=== PATIENT | male | born 1985 | race Caucasian/White ===

== ENCOUNTER 2019-08-27 16:20 | Emergency (ER) | payer MEDICARE, MEDICAID ==
--- NOTE | 2019-08-27 16:42 | EDM.PDOC ---
<OfficerSalvador - Last Filed: 08/28/19 01:05> ED HPI GENERAL MEDICAL PROBLEM - General Chief Complaint: Behavioral/Psych Stated Complaint: EVAL Time Seen by Provider: 08/27/19 16:42 - Related Data Allergies Allergy/AdvReac Type Severity Reaction Status Date / Time haloperidol [From Haldol] Allergy Agitation Verified 08/27/19 16:33 Penicillins Allergy Difficulty Verified 08/27/19 16:34 Breathing Home Meds: Home Meds LORazepam [Ativan] 2 mg PO TID 08/27/19 [History] [place] Carbonate 600 mg PO BID 08/27/19 [History] OLANZapine [ZyPREXA] 5 mg PO BID PRN 08/27/19 [History] OLANZapine [ZyPREXA] 30 mg PO BEDTIME 08/27/19 [History] Paliperidone Palmitate [Invega Sustenna] 78 mg IM ASDIRECTED 08/27/19 [History] lamoTRIgine [Lamictal] 200 mg PO DAILY 08/27/19 [History] Course - Vital Signs Last Recorded V/S: Last Vital Signs Temp 36.9 C 08/28/19 04:10 Pulse 87 08/28/19 06:07 Resp 16 08/28/19 06:07 BP 132/71 08/28/19 06:07 Pulse Ox 94 L 08/28/19 06:07 - Orders/Labs/Meds Labs: Laboratory Tests 08/27/19 08/27/19 08/27/19 Range/Units 16:56 17:04 17:51 WBC 14.8 H (4.5-11.0) K/uL RBC 5.25 (4.30-5.90) M/uL Hgb 14.9 (12.0-15.0) g/dL Hct 44.7 (40.0-54.0) % MCV 85 (80-98) fL MCH 28 (27-31) pg MCHC 33 (32-36) % Plt Count 387 (150-400) K/uL Neut % (Auto) 67 H (36-66) % Lymph % (Auto) 21 L (24-44) % [place] % (Auto) 10 H (2-6) % Eos % (Auto) 2 (2-4) % Baso % (Auto) 0 (0-1) % Sodium (140-148) mmol/L Potassium (3.6-5.2) mmol/L Chloride (100-108) mmol/L Carbon Dioxide (21-32) mmol/L Anion Gap (5.0-14.0) mmol/L BUN (7-18) mg/dL Creatinine (0.8-1.3) mg/dL Est Cr Clr Drug Dosing mL/min Estimated GFR (MDRD) (>60) Glucose (74-106) mg/dL Calcium (8.5-10.1) mg/dL Total Bilirubin (0.2-1.0) mg/dL AST (15-37) U/L ALT (12-78) U/L Alkaline Phosphatase (46-116) U/L Total Protein (6.4-8.2) g/dL Albumin (3.4-5.0) g/dL Globulin (2.3-3.5) g/dL Albumin/Globulin Ratio (1.2-2.2) TSH, Ultra Sensitive (0.358-3.740) uIU/mL Urine Opiates Screen Negative (NEGATIVE) Ur Oxycodone Screen Negative (NEGATIVE) Urine Methadone Screen Negative (NEGATIVE) Ur Propoxyphene Screen Negative (NEGATIVE) Ur Barbiturates Screen Negative (NEGATIVE) Ur Tricyclics Screen Negative (NEGATIVE) Ur Phencyclidine Scrn Negative (NEGATIVE) Ur Amphetamine Screen Negative (NEGATIVE) U Methamphetamines Scrn Negative (NEGATIVE) Urine MDMA Screen Negative (NEGATIVE) U Benzodiazepines Scrn Presumptive positive H (NEGATIVE) U Cocaine Metab Screen Negative (NEGATIVE) U Marijuana (THC) Screen Negative (NEGATIVE) Ethyl Alcohol < 3 mg/dL 08/27/19 Range/Units 17:51 WBC (4.5-11.0) K/uL RBC (4.30-5.90) M/uL Hgb (12.0-15.0) g/dL Hct (40.0-54.0) % MCV (80-98) fL MCH (27-31) pg MCHC (32-36) % Plt Count (150-400) K/uL Neut % (Auto) (36-66) % Lymph % (Auto) (24-44) % [place] % (Auto) (2-6) % Eos % (Auto) (2-4) % Baso % (Auto) (0-1) % Sodium 138 L (140-148) mmol/L Potassium 3.2 L (3.6-5.2) mmol/L Chloride 100 (100-108) mmol/L Carbon Dioxide 24 (21-32) mmol/L Anion Gap 17.2 H (5.0-14.0) mmol/L BUN 5 L (7-18) mg/dL Creatinine 1.1 (0.8-1.3) mg/dL Est Cr Clr Drug Dosing 100.78 mL/min Estimated GFR (MDRD) > 60 (>60) Glucose 152 H (74-106) mg/dL Calcium 8.8 (8.5-10.1) mg/dL Total Bilirubin 0.5 (0.2-1.0) mg/dL AST 28 (15-37) U/L ALT 38 (12-78) U/L Alkaline Phosphatase 97 (46-116) U/L Total Protein 7.9 (6.4-8.2) g/dL Albumin 4.2 (3.4-5.0) g/dL Globulin 3.7 H (2.3-3.5) g/dL Albumin/Globulin Ratio 1.1 L (1.2-2.2) TSH, Ultra Sensitive 1.880 (0.358-3.740) uIU/mL Urine Opiates Screen (NEGATIVE) Ur Oxycodone Screen (NEGATIVE) Urine Methadone Screen (NEGATIVE) Ur Propoxyphene Screen (NEGATIVE) Ur Barbiturates Screen (NEGATIVE) Ur Tricyclics Screen (NEGATIVE) Ur Phencyclidine Scrn (NEGATIVE) Ur Amphetamine Screen (NEGATIVE) U Methamphetamines Scrn (NEGATIVE) Urine MDMA Screen (NEGATIVE) U Benzodiazepines Scrn (NEGATIVE) U Cocaine Metab Screen (NEGATIVE) U Marijuana (THC) Screen (NEGATIVE) Ethyl Alcohol mg/dL Meds: Medications Discontinued Medications Generic Name Dose Route Start Last Admin Trade Name Freq PRN Reason Stop Dose Admin Diphenhydramine HCl 50 mg 08/27/19 17:45 08/27/19 18:12 Benadryl IM 08/27/19 17:46 50 mg ONETIME ONE Administration Lamotrigine 200 mg 08/27/19 17:16 08/27/19 18:12 Lamotrigine PO 08/27/19 17:17 Not Given ONETIME ONE Lamotrigine 200 mg 08/28/19 07:50 08/28/19 08:06 Lamotrigine PO 08/28/19 07:51 200 mg ONETIME ONE Administration [place] Carbonate 300 mg 08/27/19 22:00 08/28/19 06:07 [place] Carbonate PO 300 mg QID AURELIA Administration [place] Carbonate 300 mg 08/28/19 00:41 08/28/19 00:44 [place] Carbonate PO 08/28/19 00:42 Not Given NOW STA Lorazepam 1 mg 08/27/19 17:16 08/27/19 17:23 Ativan PO 08/27/19 17:17 1 mg ONETIME ONE Administration Lorazepam 2 mg 08/27/19 17:44 08/27/19 18:18 Ativan IM 08/27/19 17:45 2 mg ONETIME ONE Administration Lorazepam 2 mg 08/28/19 06:16 08/28/19 06:33 Ativan IM 08/28/19 06:17 2 mg ONETIME ONE Administration Lorazepam 2 mg 08/28/19 07:51 08/28/19 08:06 Ativan PO 08/28/19 07:52 2 mg ONETIME ONE Administration Midazolam HCl 5 mg 08/27/19 19:17 08/27/19 19:45 Versed 1 Mg/Ml IM 08/27/19 19:18 5 mg ONETIME ONE Administration Midazolam HCl 5 mg 08/28/19 00:55 08/28/19 00:55 Versed 1 Mg/Ml IM 08/28/19 00:56 5 mg ONETIME ONE Administration Midazolam HCl 5 mg 08/28/19 03:14 08/28/19 03:36 Versed 1 Mg/Ml IM 08/28/19 03:15 5 mg ONETIME ONE Administration Olanzapine 10 mg 08/27/19 17:42 08/27/19 18:11 Zyprexa IM 08/27/19 17:43 10 mg ONETIME ONE Administration Olanzapine 10 mg 08/27/19 19:40 08/27/19 21:33 Zyprexa IM 08/27/19 19:41 Not Given ONETIME ONE Olanzapine 10 mg 08/27/19 19:46 08/28/19 00:52 Zyprexa PO 08/27/19 19:47 Not Given ONETIME ONE Olanzapine 10 mg 08/28/19 00:40 08/28/19 00:52 Zyprexa PO 08/28/19 00:41 10 mg ONETIME ONE Administration Olanzapine 10 mg 08/28/19 00:55 Zyprexa IM 08/28/19 00:56 ONETIME ONE Olanzapine 10 mg 08/28/19 03:13 08/28/19 03:36 Zyprexa IM 08/28/19 03:14 10 mg ONETIME ONE Administration - Re-Assessments/Exams Free Text/Narrative Re-Assessment/Exam: Continues to be aggressive and delusional about service, believe he is the javon of the world, thinks he is on a TV show 08/27/19 19:52 Initially did well on combination Zyprexa and Versed did last for several hours however would not medication wore off he went back to his verbal abusiveness poor following of directions, continues to ask for a barrister believes he is the cane and his constitutional rights are being violated 08/27/19 19:54 08/28/19 01:05 Departure - Departure Disposition: DC/Tfer to Psych Hosp/Unit 65 Clinical Impression: Bipolar depression manic phase, Psychosis - Discharge Information Referrals: PCP,None [Primary Care Provider] - Forms: ED Department Discharge Care Plan Goals: apt was sedated with ketamine and transported to [facility] to the psych unit <Nohemy Wu - Last Filed: 08/30/19 07:34> ED HPI GENERAL MEDICAL PROBLEM - General Source of Information: Reports: Patient History Limitations: Reports: No Limitations - History of Present Illness INITIAL COMMENTS - FREE TEXT/NARRATIVE: pt has a history of manic behavior with a psychotic behavior when he is manic. He was in front of the [employer] cafe with a rifle and he posted something indicating that there would be world peace. He was at [employer] when the fabric separator operator fopund him. He did have a rifle in his vehicle and [place] Onset: Unknown/Unsure Duration: Day(s):, Other (pt clearly admits to not taking his meds for 3 days. ) Location: Reports: Head Associated Symptoms: Reports: No Other Symptoms Past Medical History Psychiatric History: Reports: Bipolar ED ROS GENERAL - Review of Systems Review Of Systems: See Below Constitutional: Reports: Other (pt is clearly manic. ) HEENT: Reports: No Symptoms Respiratory: Reports: No Symptoms Cardiovascular: Reports: No Symptoms Endocrine: Reports: No Symptoms GI/Abdominal: Reports: No Symptoms : Reports: No Symptoms Musculoskeletal: Reports: No Symptoms Psychiatric: Reports: Homicidal Ideation, Mood Lability, Other (pt does have a gun. He thinks he is in the and he states there will be worl peace. ) - Physical Exam Exam: See Below Text/Narrative:: pt arrived with a history of carrying a gun in his car. He was standing in front of the [employer] stating that today there will be world peace. Exam Limited By: No Limitations General Appearance: Alert, Anxious, Other (pt is clearly in a manic state. He has not taken his meds for 3 days. He did go to [facility] last week. ) Ears: Normal TMs Nose: Normal Inspection Throat/Mouth: Normal Inspection Head Exam: Atraumatic Neck: Normal Inspection Respiratory/Chest: No Respiratory Distress Cardiovascular: Regular Rate, Rhythm GI/Abdominal: Soft, Non-Tender (Male) Exam: Deferred Rectal (Males) Exam: Deferred Neuro Exam (Abbreviated): Alert, Oriented, Other Back Exam: Normal Inspection Extremities: Normal Inspection Psychiatric: Other (pt is extremely manic. He has not taken his meds for the last 3 days. He has a gun in his car and he had it out in front of the [employer] cafe. He stated today there will be world peace. He stated to the fabric separator operator that he was [place] the [place]. He is very out of control but he states that he is not out of control. ) Course - Vital Signs Last Recorded V/S: Last Vital Signs Temp 36.9 C 08/28/19 04:10 Pulse 87 08/28/19 06:07 Resp 16 08/28/19 06:07 BP 132/71 08/28/19 06:07 Pulse Ox 94 L 08/28/19 06:07 - Orders/Labs/Meds Labs: Laboratory Tests 08/27/19 08/27/19 08/27/19 Range/Units 16:56 17:04 17:51 WBC 14.8 H (4.5-11.0) K/uL RBC 5.25 (4.30-5.90) M/uL Hgb 14.9 (12.0-15.0) g/dL Hct 44.7 (40.0-54.0) % MCV 85 (80-98) fL MCH 28 (27-31) pg MCHC 33 (32-36) % Plt Count 387 (150-400) K/uL Neut % (Auto) 67 H (36-66) % Lymph % (Auto) 21 L (24-44) % [place] % (Auto) 10 H (2-6) % Eos % (Auto) 2 (2-4) % Baso % (Auto) 0 (0-1) % Sodium (140-148) mmol/L Potassium (3.6-5.2) mmol/L Chloride (100-108) mmol/L Carbon Dioxide (21-32) mmol/L Anion Gap (5.0-14.0) mmol/L BUN (7-18) mg/dL Creatinine (0.8-1.3) mg/dL Est Cr Clr Drug Dosing mL/min Estimated GFR (MDRD) (>60) Glucose (74-106) mg/dL Calcium (8.5-10.1) mg/dL Total Bilirubin (0.2-1.0) mg/dL AST (15-37) U/L ALT (12-78) U/L Alkaline Phosphatase (46-116) U/L Total Protein (6.4-8.2) g/dL Albumin (3.4-5.0) g/dL Globulin (2.3-3.5) g/dL Albumin/Globulin Ratio (1.2-2.2) TSH, Ultra Sensitive (0.358-3.740) uIU/mL Urine Opiates Screen Negative (NEGATIVE) Ur Oxycodone Screen Negative (NEGATIVE) Urine Methadone Screen Negative (NEGATIVE) Ur Propoxyphene Screen Negative (NEGATIVE) Ur Barbiturates Screen Negative (NEGATIVE) Ur Tricyclics Screen Negative (NEGATIVE) Ur Phencyclidine Scrn Negative (NEGATIVE) Ur Amphetamine Screen Negative (NEGATIVE) U Methamphetamines Scrn Negative (NEGATIVE) Urine MDMA Screen Negative (NEGATIVE) U Benzodiazepines Scrn Presumptive positive H (NEGATIVE) U Cocaine Metab Screen Negative (NEGATIVE) U Marijuana (THC) Screen Negative (NEGATIVE) Ethyl Alcohol < 3 mg/dL 08/27/19 Range/Units 17:51 WBC (4.5-11.0) K/uL RBC (4.30-5.90) M/uL Hgb (12.0-15.0) g/dL Hct (40.0-54.0) % MCV (80-98) fL MCH (27-31) pg MCHC (32-36) % Plt Count (150-400) K/uL Neut % (Auto) (36-66) % Lymph % (Auto) (24-44) % [place] % (Auto) (2-6) % Eos % (Auto) (2-4) % Baso % (Auto) (0-1) % Sodium 138 L (140-148) mmol/L Potassium 3.2 L (3.6-5.2) mmol/L Chloride 100 (100-108) mmol/L Carbon Dioxide 24 (21-32) mmol/L Anion Gap 17.2 H (5.0-14.0) mmol/L BUN 5 L (7-18) mg/dL Creatinine 1.1 (0.8-1.3) mg/dL Est Cr Clr Drug Dosing 100.78 mL/min Estimated GFR (MDRD) > 60 (>60) Glucose 152 H (74-106) mg/dL Calcium 8.8 (8.5-10.1) mg/dL Total Bilirubin 0.5 (0.2-1.0) mg/dL AST 28 (15-37) U/L ALT 38 (12-78) U/L Alkaline Phosphatase 97 (46-116) U/L Total Protein 7.9 (6.4-8.2) g/dL Albumin 4.2 (3.4-5.0) g/dL Globulin 3.7 H (2.3-3.5) g/dL Albumin/Globulin Ratio 1.1 L (1.2-2.2) TSH, Ultra Sensitive 1.880 (0.358-3.740) uIU/mL Urine Opiates Screen (NEGATIVE) Ur Oxycodone Screen (NEGATIVE) Urine Methadone Screen (NEGATIVE) Ur Propoxyphene Screen (NEGATIVE) Ur Barbiturates Screen (NEGATIVE) Ur Tricyclics Screen (NEGATIVE) Ur Phencyclidine Scrn (NEGATIVE) Ur Amphetamine Screen (NEGATIVE) U Methamphetamines Scrn (NEGATIVE) Urine MDMA Screen (NEGATIVE) U Benzodiazepines Scrn (NEGATIVE) U Cocaine Metab Screen (NEGATIVE) U Marijuana (THC) Screen (NEGATIVE) Ethyl Alcohol mg/dL Meds: Medications Discontinued Medications Generic Name Dose Route Start Last Admin Trade Name Kevin PRN Reason Stop Dose Admin Diphenhydramine HCl 50 mg 08/27/19 17:45 08/27/19 18:12 Benadryl IM 08/27/19 17:46 50 mg ONETIME ONE Administration Lamotrigine 200 mg 08/27/19 17:16 08/27/19 18:12 Lamotrigine PO 08/27/19 17:17 Not Given ONETIME ONE Lamotrigine 200 mg 08/28/19 07:50 08/28/19 08:06 Lamotrigine PO 08/28/19 07:51 200 mg ONETIME ONE Administration [place] Carbonate 300 mg 08/27/19 22:00 08/28/19 06:07 [place] Carbonate PO 300 mg QID AURELIA Administration [place] Carbonate 300 mg 08/28/19 00:41 08/28/19 00:44 [place] Carbonate PO 08/28/19 00:42 Not Given NOW STA Lorazepam 1 mg 08/27/19 17:16 08/27/19 17:23 Ativan PO 08/27/19 17:17 1 mg ONETIME ONE Administration Lorazepam 2 mg 08/27/19 17:44 08/27/19 18:18 Ativan IM 08/27/19 17:45 2 mg ONETIME ONE Administration Lorazepam 2 mg 08/28/19 06:16 08/28/19 06:33 Ativan IM 08/28/19 06:17 2 mg ONETIME ONE Administration Lorazepam 2 mg 08/28/19 07:51 08/28/19 08:06 Ativan PO 08/28/19 07:52 2 mg ONETIME ONE Administration Midazolam HCl 5 mg 08/27/19 19:17 08/27/19 19:45 Versed 1 Mg/Ml IM 08/27/19 19:18 5 mg ONETIME ONE Administration Midazolam HCl 5 mg 08/28/19 00:55 08/28/19 00:55 Versed 1 Mg/Ml IM 08/28/19 00:56 5 mg ONETIME ONE Administration Midazolam HCl 5 mg 08/28/19 03:14 08/28/19 03:36 Versed 1 Mg/Ml IM 08/28/19 03:15 5 mg ONETIME ONE Administration Olanzapine 10 mg 08/27/19 17:42 08/27/19 18:11 Zyprexa IM 08/27/19 17:43 10 mg ONETIME ONE Administration Olanzapine 10 mg 08/27/19 19:40 08/27/19 21:33 Zyprexa IM 08/27/19 19:41 Not Given ONETIME ONE Olanzapine 10 mg 08/27/19 19:46 08/28/19 00:52 Zyprexa PO 08/27/19 19:47 Not Given ONETIME ONE Olanzapine 10 mg 08/28/19 00:40 08/28/19 00:52 Zyprexa PO 08/28/19 00:41 10 mg ONETIME ONE Administration Olanzapine 10 mg 08/28/19 00:55 Zyprexa IM 08/28/19 00:56 ONETIME ONE Olanzapine 10 mg 08/28/19 03:13 08/28/19 03:36 Zyprexa IM 08/28/19 03:14 10 mg ONETIME ONE Administration - Re-Assessments/Exams Free Text/Narrative Re-Assessment/Exam: 08/27/19 17:30 drug screen is neg. he has not taken any of his meds in 3 days. He was offered lamital and lithium but he refused them because he states they make him sick. 08/27/19 17:31 he does state that he used a small amount of cocaine about 1 week ago. This does not show up in his drug screen 08/28/19 08:08 pt continues to be agitated. Phong mother was contacted to find out the name of the facility he was at in [place]. She continues to stress that the seroquel was the most helpful to him. 08/28/19 10:00 This case was discussed with [facility] and he was accepted by Dr Jones.Pt will go to a isolation room on admission. Pt will be sedated with ketamine prior to transfer. 08/30/19 07:32 pt continued to be very agitated. He was given ativan 1 mg po. He was accepted at [facility] in the psych unit. He was sedated with ketamine and sent to [facility] Departure - Departure Time of Disposition: 10:38 Condition: Fair
[2019-08-27] MEDS ORDERED: LORazepam 1 MG Tab PO ONE (17:16)
[2019-08-27] MEDS ORDERED: lamoTRIgine 100 MG Tab PO ONE (17:16)
[2019-08-27] MEDS ORDERED: OLANZapine 10 MG Vial IM ONE ×2 (17:42→19:40)
[2019-08-27] MEDS ORDERED: LORazepam 2 MG/ML SDV IM ONE (17:44)
[2019-08-27] MEDS ORDERED: diphenhydrAMINE 50 MG/ML SDV IM ONE (17:45)
[2019-08-27] MEDS ORDERED: Midazolam 1 MG/ML 5 ML SDV IM ONE (19:17)
[2019-08-27] MEDS ORDERED: OLANZapine 5 MG Tab PO ONE (19:46)
[2019-08-28] MEDS ORDERED: OLANZapine 5 MG Tab PO ONE (00:40)
[2019-08-28] MEDS ORDERED: Midazolam 1 MG/ML 5 ML SDV IM ONE ×2 (00:55→03:14)
[2019-08-28] MEDS ORDERED: OLANZapine 10 MG Vial IM ONE ×2 (00:55→03:13)
[2019-08-28] MEDS ORDERED: LORazepam 2 MG/ML SDV IM ONE (06:16)
[2019-08-28] MEDS ORDERED: lamoTRIgine 100 MG Tab PO ONE (07:50)
[2019-08-28] MEDS ORDERED: LORazepam 1 MG Tab PO ONE (07:51)
== END 2019-08-28 10:30 ==
LOC: JP.ED 16:20
DX: F30.9 Manic episode, unspecified (principal); F29 Unspecified psychosis not due to a substance or known physiological condition
CPT/HCPCS: 36415; 80053; 80305; 84443; 85025; 96372; 99285; A9270; G0480; J1200; J2060; J2250; J3490